=== PATIENT | female | born 1970 | race Caucasian/White ===

== ENCOUNTER → 2016-07-08 | Outpatient (CLI) | payer OTHER ==
[~2016-07-08] MED LIST: ADAL40KI SQ; CLB200 PO; CTP1 PO; DEXL60CA4 PO; FLUT0.0529 NAE; HYDR-4380 PO; HYDR-5688 PO; HYDR200T5 PO
== END | disposition home or self-care (01) ==
LOC: C.PAPS 11:12
PROVIDERS: ATTEND Obstetrics & Gynecology
DX: Z12.4 Encounter for screening for malignant neoplasm of cervix (principal); Z87.898 Personal history of other specified conditions

== ENCOUNTER → 2016-07-08 | Outpatient (CLI) | payer OTHER ==
[2016-07-08 09:36] LABS: HEMATOCRIT 41.5 % (37-47); MEAN CORPUSCULAR HEMOGLOBIN 30.9 pg (25-34); MEAN PLATELET VOLUME 10.8 fL (7.4-10.4); PLATELET COUNT 255 K/uL (130-400); RED BLOOD COUNT 4.56 M/uL (4.2-5.4); WHITE BLOOD COUNT 10.09 K/uL (4.8-10.8)
== END | disposition home or self-care (01) ==
LOC: C.LAB1850 08:22
PROVIDERS: ATTEND Obstetrics & Gynecology
DX: N93.8 Other specified abnormal uterine and vaginal bleeding (principal)

== ENCOUNTER → 2017-02-05 | Outpatient (CLI) | payer OTHER | END | disposition home or self-care (01) | LOC: C.LAB 09:35 | PROVIDERS: ATTEND Internal Medicine Rheumatology | DX: H04.123 Dry eye syndrome of bilateral lacrimal glands (principal) ==